=== PATIENT | female | born 1945 | race Caucasian/White ===

== ENCOUNTER 2016-11-29 13:51 | Emergency (ER) | payer SELFPAY ==
[~2016-11-29] VITALS: Wt 65.0 kg
[2016-11-29 14:33] LABS: URINE BLOOD (Dip) POC 3+ (NEGATIVE)
[2016-11-29] MEDS ORDERED: ACETAMINOPHEN 500 MG TAB PO STA (14:49)
[2016-11-29] MEDS ORDERED: CEPHALEXIN 500 MG CAP PO ONE (15:00)
[2016-11-29] MEDS ORDERED: PHENAZOPYRIDINE 100 MG TAB PO ONE (15:00)
--- NOTE | 2016-11-29 15:53 | RADRPT ---
PROCEDURE: XR Chest. CLINICAL INDICATION: Cough. TECHNIQUE: Single frontal view. COMPARISON: No prior study is available for comparison. FINDINGS: The lungs are clear. The heart size is normal. There is calcification in the aorta consistent with atherosclerosis. There is no pleural effusion. There is no pneumothorax. IMPRESSION: 1. Atherosclerosis. 2. Otherwise normal chest x-ray. RPTAT: QQ .Markus Colorado MD, MD Date Time Electronically viewed and signed by .Markus Colorado MD, MD on 11/29/2016 15:53 .R/
[2016-11-29] MEDS ORDERED: CEPH500C PO (16:09)
[2016-11-29] MEDS ORDERED: TYL500 PO (16:09)
[2016-11-29] MEDS ORDERED: PHEN-538 PO (16:09)
[2016-11-29] MEDS ORDERED: D-ME473S18 PO (16:12)
--- NOTE | 2016-11-29 16:16 | ERD ---
ER Documentation Chief Complaint Date/Time DATE: 11/29/16 TIME: 16:14 Chief Complaint DYSURIA SINCE YESTERDAY AND COUGH AND CONGESTION FOR 2 WKS HPI 8-year-old male presents with dysuria since yesterday with hematuria. She denies fevers, vomiting, abdominal pain other than some mild suprapubic tenderness. She also has a cough for last 2 weeks slightly productive sputum. She is worried about pneumonia as some in the house diagnosed with pneumonia. She denies chest pain or shortness of breath. ROS All systems reviewed and are negative except as per history of present illness. Medications Home Meds Active Scripts Dextromethorphan Hb-Promethazine Hcl (Promethazine DM Syrup) 473 Ml Syrup, 5 ML PO Q6H Y for COUGH, #4 OZ Prov:CHEMA JAMES MD 11/29/16 Acetaminophen* (Tylenol*) 500 Mg Tab, 500 MG PO Q4H Y for MILD PAIN LEVEL 1-3 for 15 Days, TAB Prov:CHEMA JAMES MD 11/29/16 Phenazopyridine Hcl* (Pyridium*) 200 Mg Tab, 200 MG PO TID, #6 TAB Prov:CHEMA JAMES MD 11/29/16 Cephalexin* (Cephalexin*) 500 Mg Capsule, 500 MG PO Q6 for 5 Days, #28 CAP Prov:CHEMA JAMES MD 11/29/16 Allergies Allergies: Coded Allergies: No Known Allergy (Unverified , 11/29/16) PMhx/Soc History of Surgery: Yes (TUBAL LIGATION ) Anesthesia Reaction: No Hx Neurological Disorder: No Hx Respiratory Disorders: No Hx Cardiac Disorders: Yes (HTN) Hx Psychiatric Problems: No Hx Miscellaneous Medical Probl: No Hx Alcohol Use: No Hx Substance Use: No Hx Tobacco Use: No Smoking Status: Never smoker Physical Exam Vitals Vital Signs Date Time Temp Pulse Resp B/P Pulse Ox O2 Delivery O2 Flow Rate FiO2 11/29/16 14:11 99.5 84 22 130/66 100 Physical Exam Const: [], [id number] per Head: Atraumatic Eyes: Normal Conjunctiva ENT: Normal External Ears, Nose and Mouth. Neck: Full range of motion..~ No meningismus. Resp: Clear to auscultation bilaterally Cardio: Regular rate and rhythm, no murmurs Abd: Soft, mild suprapubic tenderness. No tenderness at McBurney's point no Alves sign. non distended. Normal bowel sounds Skin: No petechiae or rashes Back: No midline or flank tenderness Ext: No cyanosis, or edema Neur: Awake and alert Psych: Normal Mood and Affect Results 24 hrs Laboratory Tests Test 11/29/16 14:34 Bedside Urine Blood 3+ Bedside Urine Glucose (UA) Negative Bedside Urine Ketones (LAB) Negative Bedside Urine Leukocyte Esterase (L 3+ Bedside Urine Nitrite (LAB) Negative Bedside Urine Protein (LAB) 2+ Bedside Urine pH (LAB) 5.5 Current Medications Medications (Trade) Dose Ordered Sig/Ani Route PRN Reason Start Time Stop Time Status Last Admin Dose Admin Cephalexin (Keflex) 500 mg ONCE ONCE PO 11/29/16 15:00 11/29/16 15:01 DC 11/29/16 15:00 Acetaminophen (Tylenol Tab) 500 mg ONCE STAT PO 11/29/16 14:49 11/29/16 14:52 DC 11/29/16 15:00 Phenazopyridine HCl (Pyridium) 200 mg ONCE ONCE PO 11/29/16 15:00 11/29/16 15:01 DC 11/29/16 15:00 Procedures/MDM Chest X-ray 1V Interpreted by me: Soft Tissue: No acute abnormalities Bones: No acute abnormalities Mediastinum/Cardiac Silhouette/Lungs: [No acute abnormalities]. Impression of normal 1 view chest x-ray Urine shows positive leukocytes and hemoglobin patient was given Keflex 500 mg Tylenol and Pyridium for UTI. Patient was treated with Keflex, Pyridium promethazine and Tylenol at home and observation and instructions to return for new or worsening symptoms with primary doctor this week. The patient was stable with no new complaints during the ER course. Clinically, there is no current evidence to suggest meningitis, sepsis, acute abdomen, pneumonia, acute coronary syndrome, pulmonary embolism, or any other emergent condition appearing to require further evaluation or hospitalization. The patient should certainly return for any new or worsening symptoms per the aftercare instructions. They should otherwise follow-up with her primary care doctor for reevaluation this week. Departure Diagnosis: Primary Impression: URI, acute Additional Impression: UTI (urinary tract infection) Urinary tract infection type: acute cystitis Hematuria presence: without hematuria Qualified Code: N30.00 - Acute cystitis without hematuria Condition: Stable Patient Instructions: Acute Bronchitis, Understanding Urinary Tract Infections (UTIs) Additional Instructions: X-ray normal. ORINA TIENE INFECCION. Cheque otro vez con alston doctor primario en el proximo perez or regresa para mas o nueva simptomas. CHEMA JAMES MD Nov 29, 2016 16:16
[2016-11-29 16:20] VITALS: BP 129/71; PULSE 76; RESP 18; TEMP 97.8
== END 2016-11-29 16:21 | disposition home or self-care (01) ==
LOC: FTE 13:51
DX: J06.9 Acute upper respiratory infection, unspecified (principal); N30.00 Acute cystitis without hematuria; I10 Essential (primary) hypertension
CPT/HCPCS: 71010; 81003